=== PATIENT | female | born 1980 | race Caucasian/White ===

== ENCOUNTER 2017-03-07 16:33 | Emergency (ER) | payer OTHER ==
[~2017-03-07] VITALS: Ht 160 cm; Wt 70.3 kg
--- NOTE | 2017-03-07 17:05 | ED ANKLE/FOOT INJURY COMPLAINT ---
History of Present Illness General Chief Complaint: Foot or Ankle Injury Stated Complaint: C/O R FOOT PAIN, INJURY WEDNESDAY Source: patient Exam Limitations: no limitations Vital Signs & Intake/Output Vital Signs & Intake/Output Vital Signs Date Time Temp Pulse Resp B/P B/P Pulse O2 O2 Flow FiO2 Mean Ox Delivery Rate 03/07 1758 97.9 89 18 110/74 100 Room Air 03/07 1704 99 Room Air 03/07 1637 96.5 92 16 114/69 97 Room Air Allergies Coded Allergies: latex (RASH 03/07/17) Reconcile Medications Levonorgestrel (Mirena) 20 MCG/24 HOUR (5 YEARS) IUD CONTROL (Reported) Meloxicam (Mobic) 15 MG TABLET 1 TAB PO DAILY PRN PAIN/INFLAMMATION Triage Note: PT STATES SHE WENT TO STEP OFF A CURB IN THE RAIN AND ROLLED HER RIGHT ANKLE/FOOT. PT HAS HAD PAIN SINCE INCIDENT ON WEDNESDAY EVENING Triage Nurses Notes Reviewed? yes : No Patient currently breastfeeds: No HPI: Patient is a 37-year-old female presents complaining of right foot pain. Patient was walking in [facility] when she she stepped off of a curb and inverted her right foot. Injury occurred on Wednesday. Pain is moderate at rest, severe with ambulation. Patient has been taking Tylenol with no improvement. Patient denies falling to the ground, head injury, neck pain, back pain, numbness. (YONIS JEAN BAPTISTE) Past History Travel History Traveled to [place] past 21 day No Medical History Any Pertinent Medical History? see below for history Gastrointestinal: CYCLICAL VOMITING Surgical History Surgical History: non-contributory Psychosocial History What is your primary language Urdu Tobacco Use: Current Daily Use Daily Tobacco Use Amount/Type: => 5 Cigarettes daily ETOH Use: denies use Illicit Drug Use: marijuana Family History Hx Contributory? No (YONIS JEAN BAPTISTE) Review of Systems Review of Systems Constitutional: Reports: no symptoms. Cardiovascular: Denies: chest pain. GI: Denies: abdominal pain. Musculoskeletal: Reports: see HPI. Denies: back pain, neck pain. Skin: Reports: no symptoms. Neurological/Psychological: Denies: numbness, paresthesia. Hematologic/Endocrine: Denies: bruising, bleeding. Immunologic/Allergic: Denies: splenectomy. (YONIS JEAN BAPTISTE) Physical Exam Physical Exam General Appearance: well developed/nourished, alert, awake Head: atraumatic, normal appearance Eyes: Bilateral: normal appearance. Ears, Nose, Throat: hearing grossly normal Neck: normal inspection, supple, full range of motion Cardiovascular/Respiratory: no respiratory distress Back: normal inspection, normal range of motion Leg/Knee/Thigh Left: normal range of motion, normal inspection Leg/Knee/Thigh Right: normal range of motion, normal inspection Ankle Right: normal inspection, normal range of motion, nontender Foot Right: tenderness mid 5th metatarsal and mid foot on the dorsal surface. full range of motion, joints stable. Neuro/Vascular: normal motor function, normal sensation Tendon: normal tendon function (YONIS JEAN BAPTISTE) Progress Differential Diagnosis: fracture, sprain, contusion, lisfranc injury Plan of Care: Orders Procedure Date/time Status Durable Medical Equipment 03/07 1735 Active Laboratory Tests 03/07/17 1646: Urine Test Cancelled Results the x-ray discussed with patient. Jeramie wrap placed by nursing staff. Will treat conservatively and have patient follow-up with her regular care provider or with orthopedics if no improvement within one week. (YONIS JEAN BAPTISTE) Diagnostic Imaging: Viewed by Me: Radiology Read. Discussed w/RAD: Radiology Read. Comments: PATIENT: HALIE VALERO PRESENT AGE: 37 PATIENT ACCOUNT NO: [id number] : 79 LOCATION: [facility] ORDERING PHYSICIAN: YONIS CAPPS SERVICE DATE: 03/07/17 EXAM TYPE: RAD - XRY-FOOT COMPLETE, R EXAMINATION: XR FOOT, RIGHT CLINICAL INFORMATION: Right foot injury. COMPARISON: None. TECHNIQUE: AP, lateral, and oblique views of the right foot. FINDINGS: The bones and soft tissues appear unremarkable. No acute fracture is identified. Alignment is anatomic. Joint spaces are maintained. IMPRESSION: No acute fracture or dislocation of the right foot. DICTATED BY: SHIRLEY REYES MD DATE/TIME DICTATED:03/07/171722 MUSIC INSTRUCTOR:BHARATI DATE/TIME TRANSCRIBED:03/07/171722 CONFIDENTIAL, DO NOT COPY WITHOUT APPROPRIATE AUTHORIZATION. <Electronically signed in Other Vendor System> SIGNED BY: SHIRLEY REYES MD 03/07/171726 (YONIS JEAN BAPTISTE) Departure Departure Time of Disposition: 1730 Disposition: HOME OR SELF CARE Condition: Stable Clinical Impression Primary Impression: Right foot sprain Qualifiers: Encounter type: initial encounter Qualified Code: S93.601A - Unspecified sprain of right foot, initial encounter Referrals: HILDA POPE,WARREN Rodriguez (PCP/Family) ANDI POPE,SESAR Garces Additional Instructions: Rest, elevate, wear Jeramie wrap for support. Ice to the affected area for 20 minutes 4-5 times a day. Follow-up with your primary doctor or with the orthopedic doctor listed in your discharge paperwork if no improvement within one week. Return to the ER if worsening of symptoms. Departure Forms: Customer Survey General Discharge Information Prescriptions: Current Visit Scripts Meloxicam (Mobic) 1 TAB PO DAILY PRN PAIN/INFLAMMATION #10 TAB (YONIS JEAN BAPTISTE) PA/RAIL MAINTENANCE WORKER Co-Sign Statement Statement: ED Attending supervision documentation- I saw and evaluated the patient. I have also reviewed all the pertinent lab results and diagnostic results. I agree with the findings and the plan of care as documented in the PA's/RAIL MAINTENANCE WORKER's documentation. x I have reviewed the ED Record and agree with the PA's/RAIL MAINTENANCE WORKER's documentation. [] Additions or exceptions (if any) to the PAs/RAIL MAINTENANCE WORKER's note and plan are summarized below: [] (MELA POPE,PRISCILA)
--- NOTE | 2017-03-07 17:27 | RADIOLOGY REPORT ---
EXAMINATION: XR FOOT, RIGHT CLINICAL INFORMATION: Right foot injury. COMPARISON: None. TECHNIQUE: AP, lateral, and oblique views of the right foot. FINDINGS: The bones and soft tissues appear unremarkable. No acute fracture is identified. Alignment is anatomic. Joint spaces are maintained. IMPRESSION: No acute fracture or dislocation of the right foot.
[2017-03-07] MEDS ORDERED: MIRENA1 EACH (17:28)
[2017-03-07] MEDS ORDERED: MOBIC15 M1 PO (17:32)
[2017-03-07 17:58] VITALS: BP 110/74
== END 2017-03-07 17:58 ==
LOC: ERH 16:33
DX: S93.601A Unspecified sprain of right foot, initial encounter (principal); X58.XXXA Exposure to other specified factors, initial encounter; Y93.01 Activity, walking, marching and hiking; Y92.9 Unspecified place or not applicable
CPT/HCPCS: 73630-RT; 81025